=== PATIENT | female | born 1955 | race Caucasian/White ===

== ENCOUNTER → 2022-06-20 13:47 | Outpatient (BNVA) | payer MEDICARE, OTHER, SELFPAY | PROVIDERS: PCP Family Medicine; Referring Provider Family Medicine; Visit Provider Internal Medicine | DX: Z79.4 Long term (current) use of insulin (principal); Z87.891 Personal history of nicotine dependence; E11.9 Type 2 diabetes mellitus without complications; E78.2 Mixed hyperlipidemia; E83.52 Hypercalcemia | CPT/HCPCS: 99204 ==